=== PATIENT | female | born 1955 | race Caucasian/White ===

== ENCOUNTER 2020-05-04 06:47 | Day surgery (SDC) | payer BC ==
[~2020-05-04] VITALS: Ht 172.7 cm; Wt 90.7 kg
[~2020-05-04 06:47] MED LIST: GABAPENTIN100 MG PO; LEVOTHYROXIN50 MCG PO; OMEPRAZOLE10 MG PO; PRAMIPEXOLE DIHY1 MG PO; PROVENTIL HFA IN; SIMVASTATIN40 MG PO; TRAZODONE50 MG PO; VENTOLIN HFA IN
[2020-05-04] MEDS ORDERED: PERCOCET 5/325M1 TAB PO ×3 (08:41→10:07)
[2020-05-04 09:08] VITALS: BP 136/69
== END 2020-05-04 09:26 | disposition home or self-care (01) | DRG 572 ==
LOC: ORM 06:47
PROVIDERS: ATTEND Surgery
PROC: 0JBP0ZZ Excision of Left Lower Leg Subcutaneous Tissue and Fascia, Open Approach (ICD-10-PCS; principal; 2020-05-04)
DX: S81.802A Unspecified open wound, left lower leg, initial encounter (principal); I73.9 Peripheral vascular disease, unspecified; F17.210 Nicotine dependence, cigarettes, uncomplicated; W19.XXXA Unspecified fall, initial encounter; Z95.9 Presence of cardiac and vascular implant and graft, unspecified; Z20.828 Contact with and (suspected) exposure to other viral communicable diseases

== ENCOUNTER 2020-08-17 | Emergency (ER) | payer BC ==
[~2020-08-17] MED LIST changes: +PERCOCET 5/325M1 TAB PO
[2020-08-17] MEDS ORDERED: SUMATRIPTAN25 MG PO (10:05)
[2020-08-17] MEDS ORDERED: BACLOFEN10 MG PO (10:06)
[2020-08-17] MEDS ORDERED: CALDOLOR PO (10:07)
[2020-08-17] MEDS ORDERED: SYMBICORT1 AE1 IN (10:08)
[2020-08-17] MEDS ORDERED: IMITREX100 M1 PO (10:08)
[2020-08-17 10:10] LABS: HEMATOCRIT 41.4 % (37.0-47.0); HEMOGLOBIN 12.7 g/dl (12.0-16.0); IMMATURE GRANULOCYTES 0.4 % (0.0-5.0); MEAN CELL VOLUME 96.3 fL CALC (80.0-100.0); MEAN CORPUSCULAR HGB 29.5 pG CALC (26.0-32.0); MEAN CORPUSCULAR HGB CONC 30.7 g/dL CAL (32.0-36.0); NEUT# 5.01 thou/uL (2.00-7.15); RED BLOOD COUNT 4.3 mill/uL (4.20-5.60); RED CELL DISTRI WIDTH 14.2 % (11.5-15.5)
[2020-08-17 10:29] LABS: ACT PARTIAL THROMBO TIME 27.9 SECONDS (20.0-32.5); PROTHROMBIN TIME 10.7 SECONDS (9.0-12.5)
[2020-08-17 10:49] LABS: ALBUMIN 3.6 g/dL (3.2-5.0); ALKALINE PHOSPHATASE 97 u/l (38-126); ANION GAP 11 (6-22 (CALC)); BILIRUBIN, TOTAL 0.6 mg/dL (0.0-1.4); BUN 15 mg/dL (8-23); BUN/CREATININE RATIO 13 (12-20 (CALC)); CARBON DIOXIDE 29 mmol/l (22-30); CHLORIDE 103 mmol/l (95-108); CREATININE 1.1 mg/dL (0.5-1.0); GFR 50 ML/MIN (>=60 (CALC)); GFR FOR AFR.AMER. > 60 ML/MIN (>=60 (CALC)); MAGNESIUM 1.9 mg/dL (1.6-2.3); POTASSIUM 3.9 mmol/l (3.5-5.1); SGOT/AST 21 u/l (9-36); SODIUM 138 mmol/l (137-146); TOTAL PROTEIN 6.8 g/dL (6.3-8.2)
[2020-08-17 12:43] LABS: URINE BILIRUBIN - DIPSTICK NEGATIVE (NEGATIVE); URINE BLOOD DIPSTICK NEGATIVE (NEGATIVE); URINE COLOR YELLOW; URINE GLUCOSE - DIPSTICK NEGATIVE (NEGATIVE); URINE KETONE NEGATIVE (NEGATIVE); URINE LEUK ESTERASE NEGATIVE (NEGATIVE); URINE PH 5.5 (4.5-8.0); URINE PROTEIN - DIPSTICK NEGATIVE (NEG-TRACE); URINE SPECIFIC GRAVITY >=1.030; URINE UROBILINOGEN - DIPSTICK 0.2 E.U./dL (0.2)
[2020-08-17 12:44] LABS: URINE NITRITE - DIPSTICK NEGATIVE (Negative)
== END 2020-08-17 12:45 | disposition short-term general hospital (02) | DRG 310 ==
PROVIDERS: Emergency Medicine
DX: I49.3 Ventricular premature depolarization (principal); S81.802A Unspecified open wound, left lower leg, initial encounter; X58.XXXA Exposure to other specified factors, initial encounter; F17.200 Nicotine dependence, unspecified, uncomplicated